=== PATIENT | male | born 1960 | race Caucasian/White ===

== ENCOUNTER 2017-02-08 13:15 | Emergency (ER) | payer BC ==
[2017-02-08 13:33] VITALS: BP 157/112
--- NOTE | 2017-02-08 15:28 | EDM.PDOC ---
ED HPI ENT - General Chief Complaint: ENT Problem Stated Complaint: HEARING AID STUCK IN L EAR Time Seen by Provider: 02/08/17 13:23 Source of Information: Reports: Patient, RN notes reviewed - History of Present Illness INITIAL COMMENTS - FREE TEXT/NARRATIVE: 56-year-old male has been transferred here from [facility] with the distal funnel part of his hearing aid inside his left ear canal. He states that when he took the hearing aid out last evening the plastic distal part over the transmitter remained in his ear canal. He went into the ear canal this morning with a Q-tip apparently pushing the plastic part of his hearing aid much deeper into the canal. At [facility] they did try irrigated out but were unsuccessful with that. He therefore transferred him here. He has very mild discomfort associated with her attempts at retrieval. There's been no bleeding or discharge. - Related Data Allergies/ADRs: Allergies Allergy/AdvReac Type Severity Reaction Status Date / Time methotrexate Allergy Headache Verified 02/08/17 13:33 Home Meds: Home Meds ALPRAZolam [Xanax] 0.25 mg PO Q8H PRN 02/13/16 [History] Dextroamphetamine/Amphetamine [Adderall] 15 mg PO BID 02/13/16 [History] Warfarin Sodium [Coumadin] 7.5 mg PO MOWEFR 02/13/16 [History] Warfarin [Coumadin] 5 mg PO SUTUTHSA 02/13/16 [History] Past Medical History HEENT History: Reports: Hard of hearing Cardiovascular History: Reports: Blood clots/VTE/DVT, Congenital septal defect, Heart murmur, Hypertension Musculoskeletal History: Reports: RA Psychiatric History: Reports: ADD, Anxiety - Past Surgical History Musculoskeletal Surgical History: Reports: Joint replacement, Knee replacement Other Musculoskeletal Surgeries/Procedures:: Bilateral elbow surgery Social & Family History - Family History Family Medical History: Noncontributory - Tobacco Use Smoking Status *Q: Never Smoker Second Hand Smoke Exposure: No - Caffeine Use Caffeine Use: Reports: Energy drinks - Recreational Drug Use Recreational Drug Use: No ED ROS ENT - Review of Systems Review Of Systems: See Below HEENT: Reports: Ear pain (Mild no better), Other (Foreign body in left ear canal ). Denies: Ear discharge Respiratory: Reports: No Symptoms Cardiovascular: Reports: No symptoms GI/Abdominal: Denies: Abdominal pain, Nausea, Vomiting Musculoskeletal: Reports: no symptoms Skin: Reports: no symptoms Neurological: Reports: No Symptoms ED EXAM, ENT - Physical Exam Exam: See Below General Appearance: alert, no apparent distress Ears: normal external exam, other (Plastic foreign body visible very distal in the left ear canal, no blood or other foreign material present) Mouth/Throat: Normal inspection Head: atraumatic Neck: normal inspection, supple Respiratory/Chest: no respiratory distress, lungs clear Cardiovascular: regular rate, rhythm Neurological: alert, oriented, no motor/sensory deficits Skin: Warm, Dry, Normal color Course - Vital Signs Last Recorded V/S: Last Vital Signs Temp 97.9 F 02/08/17 13:28 Pulse 79 02/08/17 13:28 Resp 16 02/08/17 13:28 BP 157/112 H 02/08/17 13:28 Pulse Ox 95 02/08/17 13:28 - Re-Assessments/Exams Free Text/Narrative Re-Assessment/Exam: 02/08/17 16:58 with my otoscope deep into the ear canal and able to see the plastic part quite clearly which appears to be adjacent to the tympanic membrane deep in the ear canal. Unfortunately with the canal care and being quite distal in the ear I am not able to visualize this without the magnification 8 of the otoscope. We did borrow one of the older otoscopes from [facility] floor I was able to slide out the back glass or plastic piece but this with that I also was not able to visualize the plastic foreign body to safely retrieve it. when I was busy with a different patient his RN did try further irrigation without success. I also did try suction but that also did not work. Therefore I have called [facility] and did visit with Leidy, one of the staff on duty. She's made no promises but does agree to take a look and see if she is able to get this out. They do close in about 1/2 so instructed him to go imediately there. Discharge instructions as documented. 02/08/17 17:02. Of note on return visit to further help this patient he can inform me that when removing his right hearing aid the plastic tip of his right hearing aid dislodged in his right ear canal. Fortunately that was much more visible and accessible and I was able to remove that with a forceps without difficulty. Departure - Departure Time of Disposition: 15:28 Disposition: Home, Self-Care 01 Condition: fair Clinical Impression: Foreign body Instructions: Ear Foreign Body Referrals: Amilcar Johnson Jr, MD [Primary Care Provider] - Forms: ED Department Discharge Additional Instructions: A staff member at [facility] will try get this out for you. They do normally close at 4:00 so go there imediately. If they are unable to visualize adequately to get this out safely it may require referral to [facility] but hopefully they can get this out for you. The address for [facility] is [address] [place] [address]. Phone [phone]
== END 2017-02-08 15:35 | disposition home or self-care (01) ==
LOC: JD.ED 13:15
DX: T16.2XXA Foreign body in left ear, initial encounter (principal); R01.1 Cardiac murmur, unspecified; M06.9 Rheumatoid arthritis, unspecified; F41.9 Anxiety disorder, unspecified; Z88.8 Allergy status to other drugs, medicaments and biological substances; Z79.01 Long term (current) use of anticoagulants; Z79.899 Other long term (current) drug therapy
CPT/HCPCS: 69200; 99282; 99283